=== PATIENT | male | born 1950 | race Caucasian/White ===

== ENCOUNTER 2023-10-14 13:59 | Inpatient (IN) | payer MEDICARE, OTHER ==
[~2023-10-14 13:59] MED LIST: CLARITIN D TAB1 TAB PO; PRINIVIL40 MG PO; QUALITY CHOICE1 T22 PO
[2023-12-06] VITALS (11 sets, daily range): BP systolic 119–150; BP diastolic 68–89; PULSE 75–97; TEMP 97.6–98.5
[2023-12-06] MEDS ORDERED: Meclizine 25 MG TAB PO SCH (07:00)
[2023-12-06] MEDS ORDERED: FLOMAX 0.40.4 MG/CAP PO (09:16)
[2023-12-06] MEDS ORDERED: TOPROL XL 25MG25 MG PO (09:16)
[2023-12-06] MEDS ORDERED: Gabapentin 100 MG CAP PO SCH (09:30)
[2023-12-06] MEDS ORDERED: Celecoxib 200 MG CAP PO SCH (09:30)
[2023-12-06] MEDS ORDERED: Acetaminophen 500 MG TAB PO SCH ×2 (09:30→12:42)
[2023-12-06] MEDS ORDERED: Lidocaine PF 2% (20 MG/ML) 5 ML VIAL ONE (09:53)
[2023-12-06] MEDS ORDERED: Rocuronium 50 MG/5 ML Multi-Dose VIAL ONE ×3 (09:53→13:41)
[2023-12-06] MEDS ORDERED: LR 1,000 ML IV ONE (10:00)
[2023-12-06] MEDS ORDERED: fentaNYL 50 MCG/ML 2 ML VIAL ONE (11:22)
[2023-12-06] MEDS ORDERED: Naloxone 0.4 MG/ML VIAL IV PRN (11:45)
[2023-12-06] MEDS ORDERED: oxyCODONE 5 MG TAB PO PRN (11:45)
[2023-12-06] MEDS ORDERED: LR 1,000 ML IV SCH (11:45)
[2023-12-06] MEDS ORDERED: Morphine 4 MG/ML VIAL IV PRN (11:45)
[2023-12-06] MEDS ORDERED: Ondansetron 4 MG/2 ML VIAL IV PRN ×2 (11:45→12:15)
[2023-12-06] MEDS ORDERED: fentaNYL 50 MCG/ML 1 ML SYRINGE/VIAL [PACU/SDC ONLY] IV PRN (12:15)
[2023-12-06] MEDS ORDERED: hydrALAZINE 20 MG/ML 1 ML VIAL IV PRN (12:15)
[2023-12-06] MEDS ORDERED: HYDROmorphone 1 MG/1 ML SYRINGE [PACU/SDC ONLY] IV PRN (12:15)
[2023-12-06] MEDS ORDERED: Topical Skin Adhesive 1 EACH (1 ML) TOP ONE (12:30)
[2023-12-06] MEDS ORDERED: Hyoscyamine 0.125 MG Sublingual TAB SL PRN (15:30)
[2023-12-06] MEDS ORDERED: Gabapentin 100 MG CAP PO ONE (15:42)
--- NOTE | 2023-12-06 15:50 | NUR ---
Pt recently arrived to the floor from [place]. He is alert and oriented with little to no pain complaints. He is rating it 1/10 at this time. Pts and daughter are at bedside. Lap sites x4 with edges well approximated, no drainage noted. One lap site had small amount of drainage, bandaid applied. [place] to dependent drainage, clear yellow urine. Lungs sounds clear and heart rate regular. SCDs on bilaterally. Oriented pt to the room and educated on room service. IV fluids infusing to portacath
--- NOTE | 2023-12-06 19:07 | NUR ---
Pt doing well. He has tolerated liquids and was advanced to general diet. Pt has had a general diet and continues to not have any complaints of N/V. Pt continues to state that he is not having any pain. Family remains present at bedside. Call light within reach
--- NOTE | 2023-12-06 20:27 | NUR ---
Patient assessed at this time, see shift assessment, A/Ox4, denies pain or discomfort at this time, with 5 lap sites, one has bandaid with drainage, reinforced with gauze and foam tape, passing gas, ambulated the hallway, with cooley to dependent drainage, denies further needs, call light and personal items within reach, will continue to monitor.
[2023-12-06] MEDS ORDERED: Loratadine 10 MG TAB PO SCH (21:00)
[2023-12-06] MEDS ORDERED: PSEUDOEPHEDRINE 120 MG PO SCH (21:00)
[2023-12-06] MEDS ORDERED: [UNRECOGNIZED DRUG - REMARK] PO SCH (21:00)
[2023-12-07 01:19] VITALS: BP_SYST 150
[2023-12-07 04:04] VITALS: BP 143/87; PULSE 88; TEMP 98.1
[2023-12-07 05:09] VITALS: BP_SYST 143
[2023-12-07 07:04] LABS: CALCIUM 9.2 mg/dL (8.4-10.2); CREATININE, serum 0.74 mg/dL (0.72-1.25); POTASSIUM 4.2 mEq/L (3.5-4.5)
[2023-12-07 07:07] LABS: BASO % 0.1 % (0.0-2.0); GRAN # 5.9 K/mm3 (1.4-6.5); GRAN % 76.6 % (42.2-75.2); HEMOGLOBIN 11.7 g/dl (13.5-18.0); LYMPH # 0.9 K/mm3 (1.2-3.4); LYMPH % 11.1 % (20.0-51.0); MEAN CELL VOLUME 102 fl (80.0-100.0); MEAN CORPUSCULAR HEMOGLOBIN 34 pg (27-31); MEAN CORPUSCULAR HGB CONC 34 g/dl (33.0-37.0); MEAN PLATELET VOLUME 9.1 fl (7.4-10.4); MONO # 0.9 K/mm3 (0.1-0.6); MONO % 11.8 % (1.7-9.3); PLATELET COUNT 217 K/mm3 (130-400); RED BLOOD COUNT 3.41 M/mm3 (4.20-5.60); REDCELL DISTRIBUTION WIDTH-CV 11.7 % (11.5-14.5)
[2023-12-07 08:44] LABS: HEMATOCRIT 34.7 % (42.0-52.0)
[2023-12-07] MEDS ORDERED: Lisinopril 20 MG TAB PO SCH (09:00)
== END 2023-12-07 22:00 | disposition home or self-care (01) | DRG 655 ==
LOC: INPTSU 12-06 09:39 → SDCO 12-06 10:30 → SURG 12-06 13:00 → EDSTATUS 12-06 13:00 → SURG 12-06 16:44
PROVIDERS: ADMIT Urology
PROC: 07BC4ZZ Excision of Pelvis Lymphatic, Percutaneous Endoscopic Approach (ICD-10-PCS; 2023-12-06)
PROC: 8E0W4CZ Robotic Assisted Procedure of Trunk Region, Percutaneous Endoscopic Approach (ICD-10-PCS; 2023-12-06)
PROC: 0TBB4ZZ Excision of Bladder, Percutaneous Endoscopic Approach (ICD-10-PCS; principal; 2023-12-06 10:30)
DX: C67.9 Malignant neoplasm of bladder, unspecified (principal); I10 Essential (primary) hypertension; N40.0 Benign prostatic hyperplasia without lower urinary tract symptoms; N52.9 Male erectile dysfunction, unspecified
CPT/HCPCS: A4314; A9284; C1769; J1650; J2704; J3010; J7120